=== PATIENT | female | born 1970 | race Caucasian/White ===

== ENCOUNTER 2018-01-12 14:37 | Emergency (ER) | payer OTHER, SELFPAY ==
[~2018-01-12 14:37] MED LIST: Sodium Chloride Irrig Solution 250 ML BOT ONE
[2018-01-12] MEDS ORDERED: Adacel (T-DAP) 0.5 ML VIAL ONE (15:20)
[2018-01-12] MEDS ORDERED: Ketorolac Tromethamine 60 MG/2 ML VIAL ONE (15:32)
[2018-01-12] MEDS ORDERED: Triple Antibiotic Oint 1 GM Packet ONE (16:08)
[2018-01-12] MEDS ORDERED: Lidocaine 2% w/Epinephrine 1:200K 20 ML VIAL ONE (17:03)
[2018-01-12] MEDS ORDERED: Amoxicillin/Potassium Clav 875 MG TAB ONE (18:12)
== END 2018-01-12 18:34 | disposition home or self-care (01) ==
LOC: MADERS 14:37
DX: S91.051A Open bite, right ankle, initial encounter (principal); F32.9 Major depressive disorder, single episode, unspecified; Z79.899 Other long term (current) drug therapy; W54.0XXA Bitten by dog, initial encounter
CPT/HCPCS: 12002; 90471; 90715; 96372; J1885; J2001